=== PATIENT | female | born 1995 | race Caucasian/White ===

== ENCOUNTER 2021-01-02 14:08 | Emergency (ER) | payer SELFPAY ==
--- OUTSIDE RECORDS SUMMARY | 2021-01-02 14:11 | XMS REPORT | Continuity of Care Document ---
:1995 Author Organization [facility] t Address [address] [place] [address] Care Team Providers Name Role Phone Unavailable Unavailable Unavailable Problems This patient has no known problems. Allergies, Adverse Reactions, Alerts This patient has no known allergies or adverse reactions. Medications This patient has no known medications. Procedures This patient has no known procedures. Encounters Start End Encounter Admission Attending Care Care Encounter Source Date/Time Date/Time Type Type Clinicians Facility Department ID 2020-12-08 2020-12-08 Outpatient [facility] [id number] [facility] [place] 00:00:00 00:00:00 Violet Gomez ent Clinics Results This patient has no known results.
[2021-01-02] MEDS ORDERED: TETANUS & DIPHTHERIA TOX,ADULT 0.5 ML VIAL ONE (14:56)
--- NOTE | 2021-01-02 15:17 | RAD REPORT ---
EXAM DESCRIPTION: RAD - Foot Right 3 View - 01/02/2021 3:03 pm CLINICAL HISTORY: Right foot pain status post injury FINDINGS: A bandage overlies the foot obscuring detail somewhat. No fracture or dislocation is seen
--- NOTE | 2021-01-02 16:07 | ER ---
Nurse's Notes [facility] Name: Elizabeth Rodriguez Age: 25 yrs Sex: Female : 1995 Arrival Date: 01/02/2021 Time: 14:12 Bed 14 Private MD: Diagnosis: Laceration without foreign body, right foot;Contusion of left foot Presentation: 01/02 14:14 Chief complaint: EMS states: Moving out of her apartment, got frustrated kicked ca1 instapot with R foot. HX of anxiety, hasn't taken meds today. Lac/avulsed wound on R foot. Bleeding controlled. Coronavirus screen: Client denies travel out of the [place] in the last 14 days. At this time, the client does not indicate any symptoms associated with coronavirus-19. Ebola Screen: Patient negative for fever greater than or equal to 101.5 degrees Fahrenheit, and additional compatible Ebola Virus Disease symptoms Patient denies exposure to infectious person. Patient denies travel to an Ebola-affected area in the 21 days before illness onset. No symptoms or risks identified at this time. Initial Sepsis Screen: Does the patient meet any 2 criteria? No. Patient's initial sepsis screen is negative. Does the patient have a suspected source of infection? No. Patient's initial sepsis screen is negative. Risk Assessment: Do you want to hurt yourself or someone else? Patient reports no desire to harm self or others. Onset of symptoms was January 02, 2021. 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 Last tetanus immunization: < 10 years ago Flu vaccine is not up to date. - Social history:: Smoking status: Patient reports the use of cigarette tobacco products, smokes one pack cigarettes per day. Screenin:30 Abuse screen: Denies threats or abuse. Denies injuries from another. Nutritional ca1 screening: No deficits noted. Tuberculosis screening: No symptoms or risk factors identified. Fall Risk None identified. Assessment: 14:30 General: Appears in no apparent distress. comfortable, Behavior is calm, cooperative, ca1 appropriate for age. Pain: Complains of pain in right foot Pain currently is 4 out of 10 on a pain scale. Neuro: Level of Consciousness is awake, alert, obeys commands, Oriented to person, place, time, situation. Derm: Skin is healthy with good turgor, Skin is pink, warm \T\ dry. Musculoskeletal: Circulation, motion, and sensation intact. Capillary refill < 3 seconds. Injury Description: Laceration sustained to ball of right foot is jagged, superficial, 2.6 to 7.5 cm long, was sustained 30-60 minutes ago. a small amount of bleeding noted at this time. 16:29 Reassessment: Patient appears in no apparent distress at this time. Patient is alert, ca1 oriented x 3, equal unlabored respirations, skin warm/dry/pink. Vital Signs: 14:14 BP 127 / 65; Pulse 82; Resp 17 S; Temp 98.1(O); Pulse Ox 100% on R/A; Weight 54.43 kg ca1 (R); Height 5 ft. 1 in. (154.94 cm) (R); Pain 4/10; 16:30 BP 111 / 73; Pulse 76; Resp 15 S; Pulse Ox 100% on R/A; ca1 14:14 Body Mass Index 22.67 (54.43 kg, 154.94 cm) ca1 ED Course: 14:12 Patient arrived in ED. iw 14:14 Keely Carranza, PB is Primary Nurse. ca1 14:17 Triage completed. ca1 14:18 Arm band placed on right wrist. ca1 14:24 Doug Orellana NP is PHCP. pm1 14:24 Damien Chi MD is Attending Physician. pm1 14:30 Patient has correct armband on for positive identification. Placed in gown. Bed in low ca1 position. Call light in reach. Side rails up X2. Pulse ox on. NIBP on. Warm blanket given. 15:02 Foot Right 3 View XRAY In Process Unspecified. EDMS 16:00 Assist provider with laceration repair on right foot that was between 2.6 to 7.5 cm ca1 using Dermabond. Set up tray. Performed by Doug Orellana ASSISTANT COMMUNITY MANAGER Dressed with 4X4s, Patient tolerated well. Ortho shoe applied to right foot. 16:00 Patient did not have IV access during this emergency room visit. 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 Exp: ca1 11/28/2022. Lot #: [id number]. } Route: IM; Site: right deltoid; 16:29 Follow up: Response: No adverse reaction ca1 Outcome: 16:06 Discharge ordered by MD. pm1 16:31 Discharged to home ambulatory. ca1 16:31 Condition: stable 16:31 Discharge instructions given to patient, Instructed on discharge instructions, follow up and referral plans. medication usage, wound care, Demonstrated understanding of instructions, follow-up care, medications, wound care, Prescriptions given X 1. 16:31 Patient left the ED. ca1 Signatures: Dispatcher [employer] EDJacy Funes RN RN iw Marinas, Patrick, NP ASSISTANT COMMUNITY MANAGER pm1 Keely Carranza RN RN ca1
--- NOTE | 2021-01-02 16:07 | EDPHYS ---
Physician Documentation [facility] Name: Elizabeth Rodriguez Age: 25 yrs Sex: Female : 1995 Arrival Date: 01/02/2021 Time: 14:12 Bed 14 Private MD: ED Physician Damien Chi HPI: 01/02 15:22 This 25 yrs old Female presents to ER via EMS with complaints of laceration pm1 to right foot. 15:22 The patient presents with a laceration. The complaints affect the right foot. Context: pm1 The problem was sustained at home, resulted from the patient kicking, cooking equipment, the patient can fully bear weight, the patient is able to ambulate. Onset: The symptoms/episode began/occurred just prior to arrival. Modifying factors: The symptoms are alleviated by pressure to area. Severity of symptoms: in the emergency department the symptoms have improved. The patient has not experienced similar symptoms in the past. The patient has not recently seen a physician. 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 Last tetanus immunization: < 10 years ago Flu vaccine is not up to date. - Social history:: Smoking status: Patient reports the use of cigarette tobacco products, smokes one pack cigarettes per day. ROS: 15:22 MS/extremity: Positive for laceration of the medial aspect of right foot, Negative for pm1 decreased range of motion, deformity. 15:22 Constitutional: Negative for fever, chills, and weight loss, Cardiovascular: Negative for chest pain, palpitations, and edema, Respiratory: Negative for shortness of breath, cough, wheezing, and pleuritic chest pain, Abdomen/GI: Negative for abdominal pain, nausea, vomiting, diarrhea, and constipation. 15:22 Skin: Positive for abrasion(s), laceration(s), of the medial aspect of right foot. 15:22 All other systems are negative. Exam: 15:22 Constitutional: This is a well developed, well nourished patient who is awake, alert, pm1 and in no acute distress. Head/Face: Normocephalic, atraumatic. 15:22 Cardiovascular: Exam negative for acute changes, Rate: normal, Rhythm: regular, Pulses: no pulse deficits are appreciated. 15:22 Respiratory: Exam negative for acute changes, respiratory distress, shortness of breath, Breath sounds: are clear throughout. 15:22 Skin: Appearance: normal except for affected area, injury, abrasion(s), small abrasion noted, of the right foot, laceration(s), that can be described as clean, no foreign body, irregular, skin tear to distal medial aspect of right foot. 15:22 Neuro: Exam negative for acute changes, Orientation: is normal, Mentation: is normal, Motor: is normal, moves all fours. Vital Signs: 14:14 BP 127 / 65; Pulse 82; Resp 17 S; Temp 98.1(O); Pulse Ox 100% on R/A; Weight 54.43 kg ca1 (R); Height 5 ft. 1 in. (154.94 cm) (R); Pain 4/10; 16:30 BP 111 / 73; Pulse 76; Resp 15 S; Pulse Ox 100% on R/A; ca1 14:14 Body Mass Index 22.67 (54.43 kg, 154.94 cm) ca1 Laceration: 16:03 Wound Repair of 2.5cm ( 1.0in ) Skin tear laceration to medial aspect of right foot. pm1 Irregularly shaped.. Distal neuro/vascular/tendon intact. Wound prep: Extensive cleansing with betadine with hibiclenz by me, Wound irrigation with saline by me, Wound explored extensively, Copious irrigation. Skin closed with 1-0 Adhesive skin closure using Dermabond. Patient tolerated well. MDM: 14:24 Patient medically screened. pm1 16:05 Data reviewed: vital signs. Data interpreted: Pulse oximetry: on room air is 100 %. pm1 Interpretation: normal. Counseling: I had a detailed discussion with the patient and/or guardian regarding: the historical points, exam findings, and any diagnostic results supporting the discharge/admit diagnosis, radiology results, the need for outpatient follow up, to return to the emergency department if symptoms worsen or persist or if there are any questions or concerns that arise at home. 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 Exp: ca1 11/28/2022. Lot #: [id number]. } Route: IM; Site: right deltoid; 16:29 Follow up: Response: No adverse reaction ca1 Disposition: 01/02/21 16:06 Discharged to Home. Impression: Laceration without foreign body, right foot, Contusion of left foot. - Condition is Stable. - Discharge Instructions: Foot Contusion, Tissue Adhesive Wound Care. - Prescriptions for Keflex 500 mg Oral Capsule - take 1 capsule by ORAL route every 12 hours for 10 days; 20 capsule. - Medication Reconciliation Form, Thank You Letter, Antibiotic Education, Prescription Opioid Use form. - Follow up: Emergency Department; When: As needed; Reason: Worsening of condition. Follow up: Private Physician; When: 2 - 3 days; Reason: Recheck today's complaints, Continuance of care, Re-evaluation by your physician. - Problem is new. - Symptoms have improved. Signatures: Dispatcher [employer] EDMS Doug Orellana NP JUVENILE JUSTICE OFFICER pm1 Keely Carranza RN RN ca1 Corrections: (The following items were deleted from the chart) 16:07 16:06 01/02/2021 16:06 Discharged to Home. Impression: Laceration without foreign body, pm1 right foot. Condition is Stable. Forms are Medication Reconciliation Form, Thank You Letter, Antibiotic Education, Prescription Opioid Use. Follow up: Emergency Department; When: As needed; Reason: Worsening of condition. Follow up: Private Physician; When: 2 - 3 days; Reason: Recheck today's complaints, Continuance of care, Re-evaluation by your physician. Problem is new. Symptoms have improved. pm1 16:31 16:07 01/02/2021 16:06 Discharged to Home. Impression: Laceration without foreign body, ca1 right foot; Contusion of left foot. Condition is Stable. Forms are Medication Reconciliation Form, Thank You Letter, Antibiotic Education, Prescription Opioid Use. Follow up: Emergency Department; When: As needed; Reason: Worsening of condition. Follow up: Private Physician; When: 2 - 3 days; Reason: Recheck today's complaints, Continuance of care, Re-evaluation by your physician. Problem is new. Symptoms have improved. pm1
[2021-01-02] MEDS ORDERED: DERMABOND SKIN ADHESIVE TOP ONE (16:08)
[2021-01-02 16:40] VITALS: TEMP 98.1; O2SAT 100
[2021-01-02 16:42] VITALS: BP 111/73
== END 2021-01-02 16:31 | disposition home or self-care (01) ==
LOC: ER 14:08
PROC: 0HQMXZZ Repair Right Foot Skin, External Approach (ICD-10-PCS; principal; 2021-01-02)
DX: S91.311A Laceration without foreign body, right foot, initial encounter (principal); S90.32XA Contusion of left foot, initial encounter; Z23 Encounter for immunization; F17.210 Nicotine dependence, cigarettes, uncomplicated; W22.09XA Striking against other stationary object, initial encounter; Y92.009 Unspecified place in unspecified non-institutional (private) residence as the place of occurrence of the external cause; F41.9 Anxiety disorder, unspecified
CPT/HCPCS: 90471; 90714; 99284

== ENCOUNTER 2022-05-01 16:25 | Emergency (ER) | payer OTHER ==
--- OUTSIDE RECORDS SUMMARY | 2022-05-01 16:29 | XMS REPORT | Continuity of Care Document ---
:1995 Author Organization [facility] t Address [address] [place] [address] Care Team Providers Name Role Phone Pcp, Patient Does Not Have A Primary Care Physician +[id number] Tee Rg Attending Clinician Unavailable MARILU ANTONIO Attending Clinician Unavailable Marilu Posadas Attending Clinician Keaton AMBRIZ, Penny Sierra Attending Clinician CLIF CARUSO Attending Clinician Unavailable Joseph Hood MD Attending Clinician Sharon Leon MD Attending Clinician Clif Caruso MD Attending Clinician HUEY COX Attending Clinician Unavailable Huey Ledezma Attending Clinician CLIF CARUSO Admitting Clinician Unavailable Clif Caruso MD Admitting Clinician HUEY COX Admitting Clinician Unavailable Payers Payer Name Policy Type Policy Number Effective Date Expiration Date S ource MEDICAID OF [place] [id number] 2020 00:00:00 Problems Condition Condition Condition Status Onset Resolution Last Treating Co mments Source Name Details Category Date Date Treatment Clinician Date Rhabdomyol Rhabdomyol Disease Active U nivers ysis ysis 03-14 ity of 00:00: [address] Severe Severe Disease Active Univers dehydratio dehydratio 03-13 it y of n n 00:00: [address] No known No known Disease Unive rs active active ity of problems problems [facility] [id number] Anxiety Problem Commo n disorder, Spirit unspecifie - [facility] d [facility] [id number] Major Problem Common depressive Spirit disorder, [facility] d [place] [id number] Developmen Problem Comm on vidhi Spirit disorder - [facility] of [facility] skills, Medical unspecifie Center d Allergies, Adverse Reactions, Alerts Allergy Allergy Status Severity Reaction(s) Onset Inactive Treating Comm ents Source Name Type Date Date Clinician NO KNOWN Drug Active Univers ALLERGIE Class ity of [facility] Social History Social Habit Start Date Stop Date Quantity Comments Source History of Common Spirit - Tobacco Use [facility] Sex Assigned At Common Sp leonela - [facility] Exposure to 2022-04-20 2022-04-30 Unable to assess Univers ity of SARS-CoV-2 00:00:00 12:23:00 [facility] [place] Tobacco use and 2022-03-13 2022-03-13 Smokeless tobacco Un iversity of exposure 00:00:00 00:00:00 non-user [facility] Education 2022-03-13 2022-03-13 14 [facility] 00:00:00 00:00:00 [facility] Smoking Status Start Date Stop Date Source Unknown if ever smoked Universit y [facility] Occasional tobacco smoker 2022-03-13 00:00:00 Un iversity [facility] Never Smoker [facility] Medications Ordered Filled Start Stop Current Ordering Indication Dosage Frequency Signature Comments Components Source Medication Medication Date Date Medication? Clinician (SIG) Name Name NaCl 0.9% 2021-07 500mL at 999 Univ ers (NS) bolus 0-23 10-23 mL/hr, 500 it y of infusion 18:45: 19:21 mL, IV [place] 500 mL 00 :00 Infusion, Medical ONCE, 1 Branch dose, On 04/30/22 at 1345, DANIEL NaCl 0.9% 2021-07 1000mL at 999 Uni vers (NS) bolus 0-23 mL/hr, ity of infusion 17:45: 19:15 1,000 mL, [place] 1,000 mL 00 :00 IV Medical Infusion, Branch ONCE, 1 dose, On 04/30/22 at 1245, DANIEL LORazepam 2021-07- No 1mg 1 mg, Slow U nivers (ATIVAN) 004-30 IV Push, ity of injection 1 17:00: 17:32 [place]CE, 1 [place] mg 00 :00 dose, On Medical Sun Branch 04/30/22 at 1200, STAT hydrOXYzine 2021-07 Yes [id number] 50mg Take 1 Univers 50 mg [id number] tablet by ity of tablet 00:00: mouth 3 [place] 00 (three) Medical times Branch daily as needed for Anxiety. PARoxetine 2021- Yes [id number] 20mg Take 1 Univers (PAXIL) 20 03-16 tablet by ity of mg tablet 00:00: 04:59 mouth in [place] 00 :00 the Medical morning Branch for 30 days. PARoxetine 2021- Yes [id number] 20mg Take 1 Univers (PAXIL) 20 03-16 tablet by ity of mg tablet 00:00: 04:59 mouth in [place] 00 :00 the Medical morning Branch for 30 days. PARoxetine 2021- No 20mg Take 20 mg Univers (PAXIL) 20 03-15 by mouth ity of mg tablet 15:14: 00:00 in the [place] 50 :00 morning. Medical Branch sulfamethox 2021- Yes [id number] 1{tbl} Take 1 Univers azole-trime 03-15 tablet by it y of thoprim 00:00: 04:59 mouth in [place] (BACTRIM 00 :00 the Medical DS) 800-160 morning Branc h mg per and 1 tablet tablet in the evening. Do all this for 7 days. sulfamethox 2021- Yes [id number] 1{tbl} Take 1 Univers azole-trime 03-15 tablet by it y of oprim 00:00: 04:59 mouth in [place] (BACTRIM 00 :00 the Medical DS) 800-160 morning Branc h mg per and 1 tablet tablet in the evening. Do all this for 7 days. Vancomycin 2021- Yes 15mg/kg 750 mg U nivers 750 mg in 03-14 (rounded ity o f NaCl 0.9% 23:00: 22:59 from 892.5 [place] (NS) 250 mL 00 :00 mg = 15 Medic al VIAL-MATE mg/kg Branch ?59.5 kg), IV Piggyback, Q8H ABX, 9 doses, First dose on Sun03/14/22 at 1800, Last dose on Sun03/17/22 at 1000, Administer over 60 Minutes, 250 mL
Reas on for Anti-Infec tive: Documented Infection< br>Documen scooter Infection Site: Urine
D uration of Therapy: 7 days NaCl 0.45% Yes 1000mL at 125 Uni vers (1/2NS) IV 03-14 mL/hr, ity of infusion 19:00: 1,000 mL, [place] 1,000 mL 00 IV Medical Infusion, Branch CONTINUOUS , Starting on Sun03/14/22 at 1400, Until Discontinu ed, Routine maalox:diph Yes 15mL 15 mL, Univ ers enhydrAMINE 03-14 Oral ity of :lidocaine 15:15: ([place] 2 % viscous 00 Spit Out), Me dical 1:1:1 Q6HPRN, Branch (FIRST-MOUT Starting HWASH BLM) on Sun oral 03/14/22 at suspension 1015, 15 mL Until Discontinu ed, Routine, Oral mucositis cefTRIAXone No 1000mg 1,000 mg, Univers (ROCEPHIN) 03-14 IV ity of 1,000 mg in 04:00: 21:47 Piggyback, [place] NaCl 0.9% 00 :57 Q24H ABX, Medic al (NS) 50 mL 6 doses, Branc h MINI-BAG First dose on Sun03/13/22 at 2300, Last dose on 03/18/22 at 2300, Administer over 30 Minutes, 50 mL
Reas on for Anti-Infec tive: Documented Infection& lt;br>Docu mented Infection Site: Urine
D uration of Therapy: 7 days enoxaparin Yes 40mg 40 mg, Unive rs (LOVENOX) 03-13 Subcutaneo ity of injection 22:00: [place], [place]ILY, [place] 40 mg 00 First dose Medical on [facility] 03/13/22 at 1700, Until Discontinu ed, Routine maalox:diph 2021- No 15mL 15 mL, Uni vers enhydrAMINE 03-13 Oral ity of :lidocaine 17:05: 15:11 ([place] 2 % viscous 07 :52 Spit Out), Me dical 1:1:1 QDAILYPRN, Branch (FIRST-MOUT Starting HWASH BLM) on Sun oral 03/13/22 at suspension 1205, 15 mL Until 03/14/22 at 1011, Routine, Oral mucositis clonazePAM Yes .5mg 0.5 mg, Univ ers (KLONOPIN) 03-13 Oral, BID, ity of tablet 0.5 16:45: First dose [place] mg 00 on [facility] Medical 03/13/22 at Branch 1145, Until Discontinu ed, Routine PARoxetine Yes 20mg 20 mg, Unive rs (PAXIL) 03-13 Oral, ity of tablet 20 14:00: DAILY, [place] mg 00 First dose Medical on [facility] 03/13/22 at 0900, Until Discontinu ed, Routine LORazepam 2021- No 2mg 2 mg, Slow U nivers (ATIVAN) 03-13 IV Push, ity of injection 2 09:30: 08:47 ONCE, 1 [place] mg 00 :00 dose, On Medical [facility] 03/13/22 Branch at 0430, Routine
Is the medication being used for status epilepticu s? No NaCl 0.45% 2021- No 1000mL at 100 Un bola (1/2NS) IV 03-13 mL/hr, ity of infusion 08:45: 18:48 1,000 mL, [place] 1,000 mL 00 :29 IV Medical Infusion, Branch CONTINUOUS , Starting on Sun03/13/22 at 0345, Until Tu03/14/22 at 1348, Routine LORazepam Yes 2mg 2 mg, Slow Un bola (ATIVAN) 03-13 IV Push, ity of injection 2 08:41: Q4HPRN, [place] mg 50 Starting Medical on Sun [place] 03/13/22 at 0341, Until Discontinu ed, Routine, Agitation& lt;br>Is the medication being used for status epilepticu s? No ondansetron Yes 4mg 4 mg, Slow Univers (ZOFRAN 03-13 IV Push, ity of (PF)) 06:33: Q6HPRN, [place] injection 4 50 Starting Medi princess mg on Sun [place] 03/13/22 at 0133, Until Discontinu ed, Routine, Nausea and Vomiting (N/V) acetaminoph Yes 650mg 650 mg, Un bola en 03-13 Oral, ity of (TYLENOL) 06:33: Q6HPRN, [place] tablet 650 43 Starting Medic al mg on Sun [place] 03/13/22 at 0133, Until Discontinu ed, Routine, Pain (scale 1-3) diphenhydrA 2021- No 25mg 25 mg, Uni vers MINE 03-13 Slow IV ity of (BENADRYL) 04:45: 05:11 Push, [place] injection 00 :00 ONCE, 1 Medical 25 mg dose, On [facility] 03/12/22 at 2345, STAT cefTRIAXone 2021-0 2021- No 2g 2 g, IV Un bola (ROCEPHIN) 03-13 Piggyback, it y of 2 g in NaCl 04:30: 04:07 ONCE NOW, [place] 0.9% (NS) 00 :00 1 dose, On Medi princess 100 mL [place] 03/12/22 [place] MINI-BAG at 2330, Administer over 30 Minutes, 100 mL
R tiffanie for Anti-Infec tive: Documented Infection< br>Documen scooter Infection Site: Urine<br&g t;Duration of Therapy: Other (see Comments) D5W IV 2021-0 2022- No 1000mL at 150 Univer s infusion 03-13 mL/hr, IV ity o f 1,000 mL 03:45: 07:41 Infusion, [place] 00 :07 CONTINUOUS Medical , Starting Branch on Sun03/12/22 at 2245, Until Sun03/13/22 at 0241, DANIEL ketamine 2021- No 100mg 100 mg, Univ ers (KETALAR) 03-13 Slow IV ity of injection 03:30: 02:20 Push, [place] 100 mg 00 :00 ONCE, 1 Medical dose, On Branch [place] 03/12/22 at 2230, Routine midazolam 2021- No 2mg 2 mg, IV Uni vers (VERSED) 03-13 Push, ity of injection 2 03:15: 03:15 ONCE, 1 [place] mg 00 :00 dose, On Medical [place] 03/12/22 Branch at 2215, STAT iopamidol 2021- No [id number] 75mL 75 mL, Univers (ISOVUE 03-13 Intravenou ity o f 370-500 mL) 02:25: 02:26 s, ONCE, 1 [place] injection 00 :00 dose, On Medica l 75 mL [place] 03/12/22 Branch at 2145, Routine midazolam 2021-2021- No 2mg 2 mg, IV Uni vers (VERSED) 03-13 Push, ity of injection 2 02:00: 01:59 ONCE, 1 [place] mg 00 :00 dose, On Medical [place] 03/12/22 Branch at 2100, STAT methylPREDN methylPREDN 2021- No QD methylPRED ISolone 4 ISolone 4 02-23 NISolone 4 MG MG 00:00: 00:00 MG 00 :00 methylPREDN methylPREDN 2021- No QD methylPRED ISolone 4 ISolone 4 02-23 NISolone 4 MG MG 00:00: 00:00 MG 00 :00 ketorolac 2021-2021- No 30mg 30 mg, Unive rs (TORADOL) 12-06 Slow IV ity of injection 02:00: 00:56 Push, [place] 30 mg 00 :00 ONCE, 1 Medical dose, On Branch [facility] 12/05/21 at 2100, D[facility]EL
[facility] : HUEY COX NaCl 0.9% 2021- No 1000mL at 999 Uni vers (NS) bolus 12-06 mL/hr, ity of infusion 02:00: 02:58 1,000 mL, [place] 1,000 mL 00 :00 IV Medical Infusion, Branch ONCE, 1 dose, On [facility] 12/05/21 at 2100, STAT morpHINE (4 No 4mg 4 mg, Slow Univers mg/mL) 12-06 IV Push, ity of injection 4 02:00: 00:56 ONCE, 1 [place] mg 00 :00 dose, On Medical [facility] 12/05/21 at 2100, STAT ondansetron 2021- No 4mg 4 mg, Slow Univers (ZOFRAN 12-06 IV Push, ity of (PF)) 02:00: 01:01 ONCE, 1 [place] injection 4 00 :00 dose, On Medi princess mg [facility] 12/05/21 at 2100, DANIEL FENTanyl PF No 50ug 50 mcg, Un bola (SUBLIMAZE 12-0530 Slow IV ity o f (PF)) 23:30: 22:42 Push, [place] injection 00 :00 ONCE, 1 Medical 50 mcg dose, On Branch [facility] 12/05/21 at 1830, STAT iopamidol 2021- No [id number] 100mL 100 mL, Univers (ISOVUE 12-0530 Intravenou ity o f 370-500 mL) 23:00: 23:00 s, ONCE, 1 [place] injection 00 :00 dose, On Medica l 100 mL [facility] 12/05/21 at 1815, Routine ciprofloxac Yes [id number] 250mg Take 1 Univers in HCl 250 5-30 tablet by ity of mg tablet 00:00: mouth 2 [place] 00 (two) Medical times Branch daily. PARoxetine PARoxetine No 1{table QD PARoxetine HCl 20 MG HCl 20 MG t_in_th HCl 20 MG e_morni ng} PARoxetine PARoxetine No 1{table QD PARoxetine HCl 20 MG HCl 20 MG t_in_th HCl 20 MG e_morni ng} PARoxetine PARoxetine No 1{table QD PARoxetine HCl 20 MG HCl 20 MG t_in_th HCl 20 MG e_morni ng} PARoxetine PARoxetine No 1{table QD PARoxetine HCl 20 MG HCl 20 MG t_in_th HCl 20 MG e_morni ng} PARoxetine PARoxetine No 1{table QD PARoxetine HCl 20 MG HCl 20 MG t_in_th HCl 20 MG e_morni ng} PARoxetine PARoxetine No 1{table QD PARoxetine HCl 20 MG HCl 20 MG t_in_th HCl 20 MG e_morni ng} PARoxetine PARoxetine No 1{table QD PARoxetine HCl 20 MG HCl 20 MG t_in_th HCl 20 MG e_morni ng} PARoxetine PARoxetine No 1{table QD PARoxetine HCl 20 MG HCl 20 MG t_in_th HCl 20 MG e_morni ng} PARoxetine PARoxetine No 1{table QD PARoxetine HCl 20 MG HCl 20 MG t_in_th HCl 20 MG e_morni ng} Vital Signs Vital Name Observation Time Observation Value Comments Source Systolic blood 2022-04-30 19:56:00 123 mm[Hg] Univer sity [facility] Diastolic blood 2022-04-30 19:56:00 98 mm[Hg] Unive [facility] Heart rate 2022-04-30 19:56:00 95 /min [facility] Respiratory rate 2022-04-30 19:56:00 16 /min [facility] Oxygen saturation in 2022-04-30 19:56:00 100 /min [facility] Arterial blood by [facility] Pulse oximetry Branch Body temperature 2022-04-30 16:46:00 36.61 [place] [facility] Body weight 2022-04-30 16:46:00 49.896 kg [facility] BMI 2022-04-30 16:46:00 18.88 kg/m2 [facility] Systolic blood 2022-03-15 16:37:00 101 mm[Hg] Univer sity [facility] Diastolic blood 2022-03-15 16:37:00 56 mm[facility]Hg[facility] 2022-03-15 16:37:00 63 /min Universi ty [facility] Body temperature 2022-03-15 16:37:00 35.67 [place] Univ ersity [facility] Respiratory rate 2022-03-15 16:37:00 18 /[facility] Oxygen saturation in 2022-03-15 16:37:00 100 /min [facility] Arterial blood by [facility] Pulse oximetry Branch Body weight 2022-03-15 09:40:00 63.458 kg Universi ty [facility] BMI 2022-03-15 09:40:00 24.01 kg/m2 Universi ty [facility] Body height 2022-03-13 01:41:00 162.6 cm Universi ty [facility] height 2022-03-08 16:00:00 61 [in_i] [facility] weight 2022-03-08 16:00:00 124.4 [lb_av] [facility] temperature 2022-03-08 16:00:00 98.3 [degF] [facility] bmi 2022-03-08 16:00:00 23.5 kg/m2 [facility] oximetry 2022-03-08 16:00:00 99 % [facility] respiratory rate 2022-03-08 16:00:00 16 /min Comm on [facility] blood pressure 2022-03-08 16:00:00 109 mm[Hg] Common [facility] - systolic [facility] blood pressure 2022-03-08 16:00:00 58 mm[Hg] Common [facility] - diastolic [facility] height 2022-02-23 09:10:00 61 [in_i] [facility] weight 2022-02-23 09:10:00 132 [lb_av] [facility] bmi 2022-02-23 09:10:00 24.94 kg/m2 [facility] height 2022-01-18 09:40:00 61 [in_i] [facility] weight 2022-01-18 09:40:00 131.7 [lb_av] Common Spirit - [facility] temperature 2022-01-18 09:40:00 98.5 [degF] Common S [facility] bmi 2022-01-18 09:40:00 24.88 kg/m2 Common S [facility] oximetry 2022-01-18 09:40:00 100 % Common S [facility] respiratory rate 2022-01-18 09:40:00 16 /min Comm on Spirit - [facility] blood pressure 2022-01-18 09:40:00 107 mm[Hg] Common [facility] - systolic [facility] blood pressure 2022-01-18 09:40:00 58 mm[Hg] Common [facility] - diastolic [facility] Systolic blood 2021-12-06 02:00:00 113 mm[Hg] Univer sity of [facility] Diastolic blood 2021-12-06 02:00:00 69 mm[Hg] Unive rsity [facility] Heart rate 2021-12-06 02:00:00 66 /min [facility] Respiratory rate 2021-12-06 02:00:00 16 /min [facility] Oxygen saturation in 2021-12-06 02:00:00 99 /min [facility] Arterial blood by [facility] Pulse oximetry Branch Body temperature 2021-12-05 21:48:00 37.44 [place] [facility] Body height 2021-12-05 21:48:00 154.9 cm [facility] Body weight 2021-12-05 21:48:00 60.328 kg [facility] BMI 2021-12-05 21:48:00 25.13 kg/m2 [facility] height 2021-07-22 16:20:00 61 [in_i] Common S [facility] weight 2021-07-22 16:20:00 139 [lb_av] Common S [facility] bmi 2021-07-22 16:20:00 26.26 kg/m2 Common S pirit - [facility] Procedures Procedure Date / Time Performing Clinician Source Performed LACTIC ACID WHOLE BLOOD 2022-04-30 19:54:00 Marilu Antonio [facility] POCT TEST 2022-04-30 17:20:00 Marilu Antonio [facility] LACTIC ACID WHOLE BLOOD 2022-04-30 17:15:00 Marilu Antonio [facility] URINALYSIS 2022-04-30 17:14:00 Marilu Antonio [facility] URINE DRUG (IMMUNOASSAY) 2022-04-30 17:14:00 Marilu Antonio [facility] SCREEN W/O REFLEX CREATINE KINASE 2022-04-30 17:08:00 [facility]OLIC PANEL 2022-04-30 17:08:00 Marilu Antonio [facility] ([id number]) [facility] CBC WITH DIFF 2022-04-30 17:08:00 [facility] CREAT[facility] 2022-03-15 10:04:00 Sheldon [facility] BASIC METABOLIC PANEL 2022-03-15 10:04:00 katharine [facility] (NA, K, CL, CO2, GLUCOSE, Medica l Branch BUN, CREATININE, CA) CBC WITH DIFF 2022-03-15 10:04:00 Sheldon [facility] CREATINE KINASE 2022-03-14 16:50:00 Sheldon [facility] BASIC METABOLIC PANEL 2022-03-14 16:50:00 katharine [facility] (NA, K, CL, CO2, GLUCOSE, Medica l Branch BUN, CREATININE, CA) CBC WITH DIFF 2022-03-14 16:50:00 [facility] 2022-03-13 18:28:00 [facility] BASIC METABOLIC PANEL 2022-03-13 18:28:00 [facility] (NA, K, CL, CO2, GLUCOSE, Medica l Branch BUN, CREATININE, CA) POCT TEST 2022-03-13 03:48:00 Joseph Hood [facility] URINE DRUG (IMMUNOASSAY) 2022-03-13 03:04:00 [facility] Medical [facility] SCREEN URINALYSIS 2022-03-13 03:04:00 Joseph Hood [facility] BLOOD CULTURE SCREEN 2022-03-13 02:58:00 Joseph Hood [facility] URINE CULTURE 2022-03-13 02:58:00 Joseph Hood [facility] ABORH CONFIRMATION (LAB 2022-03-13 02:55:00 Joseph Hood [facility]) Medical Branch HB ECG ROUTINE & RHYTHM 2022-03-13 02:43:56 Joseph Hood [facility] STRIP [facility] CT TRAUMA THORAX W 2022-03-13 02:35:42 Joseph Hood [facility] CONTRAST Medical Branch CT TRAUMA ABDOMEN PELVIS 2022-03-13 02:35:42 [facility] Medical [place] CT TRAUMA HEAD WO 2022-03-13 02:35:16 Joseph Hood [facility] CONTRAST Medical [place] CT TRAUMA CERVICAL SPINE 2022-03-13 02:35:16 [facility] CT TRAUMA THORACIC SPINE 2022-03-13 02:35:16 [facility] Branch CT TRAUMA LUMBAR SPINE WO 2022-03-13 02:35:16 [facility] Medical [place] MODERATE SEDATION 2022-03-13 02:20:00 Joseph Hood [facility] Medical [place] HB ABO GROUPING 2022-03-13 02:15:00 Joseph Hood [facility] COVID-19 (ID NOW RAPID 2022-03-13 01:55:00 Joseph Hood [facility] TESTING) Medical [place] LAB ONLY COVID 2022-03-13 01:55:00 Joseph Hood [facility] INTERPRETATION [facility] Branch COMP. METABOLIC PANEL 2022-03-13 01:53:00 Joseph Hood [facility] ([id number]) Medical [place] SALICYLATE 2022-03-13 01:53:00 Joseph Hood [facility] ETHANOL 2022-03-13 01:53:00 Joseph Hood [facility] CBC WITH DIFF 2022-03-13 01:53:00 Joseph Hood [facility] CT ABDOMEN PELVIS W 2021-12-05 23:09:00 Huey [facility] Branch POCT TEST 2021-12-05 22:54:00 Huey Cox [facility] URINALYSIS 2021-12-05 22:53:00 Heuy Cox [facility] COMP. METABOLIC PANEL 2021-12-05 22:42:00 Huey Cox [facility] ([id number]) [facility] CBC WITH DIFF 2021-12-05 22:41:00 Huey Cox [facility] Encounters Start End Encounter Admission Attending Care Care Encounter Source Date/Time Date/Time Type Type Clinicians Facility Department ID 2022-01-19 Outpatient Rg, [facility] [id number] Common 09:46:01 Avnee [facility] 2022-01-11 [facility] [id number] Common 08:36:02 Avnee [facility] 2021-12-14 [facility], [facility] [id number] Common 14:35:01 Avnee [facility] 2021-08-03 Outpatient Rg, [facility] [id number] Common 14:35:58 Avnee [facility] 2021-08-03 Outpatient Rg, STLC [facility] [id number] Common 14:33:46 Avnee [facility] 2021-08-03 Outpatient Rg, STLC [facility] [id number] Common 13:45:08 Avnee [id number] [facility] 2021-08-03 Outpatient Rg, [facility] [id number] Common 13:10:13 Avnee [id number] [facility] 2021-08-03 Outpatient Rg, [facility] [id number] Common 13:10:00 Avnee [id number] [facility] 2022-04-30 2022-04-30 Emergency X ANTONIO, [facility] ERT [id number] Univers 11:41:00 15:44:00 [facility] 2022-04-30 2022-04-30 [facility] [id number] Univers 11:41:00 15:44:00 Marilu CHERY [id number] i ty of [place] [id number] [facility] [id number] [facility] 084 Branch 2022-03-16 2022-03-16 Transition KATE Pugh [id number] Univers 00:00:00 00:00:00 of Care Penny MACY [id number] i ty of ASHLEY [id number] [facility] [place] [id number] [facility] 403 Branch 2022-03-12 2022-03-15 Inpatient X [facility] [id number] Univers 20:38:00 16:25:00 [facility] 2022-03-12 2022-03-15 [facility] Joseph Hood [facility] [id number] Univers 20:38:00 16:25:00 Encounter Sharon Leon [id number] ity of Clif Caruso [id number] [facility] [id number] [facility] 081 Branch 2022-03-08 2022-03-08 (TEL) STLMLC STLMLC [id number] Co mmon 00:00:00 00:00:00 [facility] 2022-03-08 2022-03-08 OFFICE STLMLC STLMLC [id number] Co mmon 00:00:00 00:00:00 VISIT EST Spir it PT LEVEL 3 [facility] 2022-02-23 2022-02-23 OFFICE STLMLC STLMLC [id number] Co mmon 00:00:00 00:00:00 VISIT EST Spir it PT LEVEL 3 [facility] 2022-02-23 2022-02-23 (TEL) STLMLC STLMLC [id number] Co mmon 00:00:00 00:00:00 [facility] 2022-01-18 2022-01-18 OFFICE STLMLC STLMLC [id number] Co mmon 00:00:00 00:00:00 VISIT EST Spir it PT LEVEL 3 [facility] 2021-12-05 2021-12-05 [facility] [id number] Univers 16:46:00 22:03:00 HUEY anderson [facility] 2021-12-05 2021-12-05 Emergency [facility] [id number] Univers 16:46:00 22:03:00 Huey Erickson VIDA [id number] i ty [facility] [id number] [facility] [facility] [phone] [place] [id number] [place] 2021-10-25 2021-10-25 (TEL) STLMLC STLMLC [id number] Co mmon 00:00:00 00:00:00 [facility] 2021-07-22 2021-07-22 OL DIG E/M STLMLC STLMLC [id number] Common 00:00:00 00:00:00 [facility] [place] Spir it MIN [facility] 2021-07-21 2021-07-21 (TEL) STLMLC STLMLC [id number] Co mmon 00:00:00 00:00:00 [facility] 2020-12-08 2020-12-08 Outpatient STLMLC STLMLC [id number] Common 00:00:00 00:00:00 [facility] Results Test Description Test Time Test Comments Results Result Comments Source POCT TEST 2022-04-30 17:20:00 Test Item Value Reference Range Interpretation Comme nts POCT PREG (test code = 1605) negative On board controls acceptable with C Line (test code = 3574) present POCT PREG LOT # (test code = 3575) [id number] POCT PREG TEST DATE (test code = 3576) 09/06/2023 Lab Interpretation (test code = 74804-7) Normal [facility]PO[facility] [id number] 03:48:00 Test Item Value Reference Range Interpretation Comments On board controls acceptable with present C Line (test code = 3574) POCT PREG LOT # (test code = 3575) [id number] POCT PREG TEST DATE (test 2023-06-07 code = 3576) POCT PREG (test code = 1605) negative Lab Interpretation (test code = Normal 36432-3) [facility] HospitalABORH Confirmation (Lab Only)2022-03-13 03:29:35 Test Item Value Reference Range Interpretation Comments ABO & RH (test code O Positive Performe d at [facility] = 20) Laboratory Serv [facility] [address] [place], [place] [id number] Free: [phone] A No. [id number] [facility] HospitalType and Screen - ONCE [id number] 03:07:39 Test Item Value Reference Range Interpretation Comments ABO & RH (test code O Positive Performe d at [facility] = 20) [facility] [address] [place], [place] [address]Toll Free: [phone] A No. [id number] IAT (test code = Negative Performed a t [facility] 1185) Laboratory [facility] [place], [place] [id number] Free: [phone] A No. [id number] [facility] HospitalSALICYLATE2022-09-05 02:29:30 SALICYLATE<10mg/L03/12/2022 9:29 PM [facility]: ? Analgesic and Antipyretic Use ? 20- 100 mg/L ? ? Anti-Inflammatory Use ? 100-250 mg/L Toxic Range: ? Greater than 300 mg/LUnB[facility] DallasETHANOL2022-09-05 02:29:25ALCOHOL<10mg/dL03/12/2022 9:29 PM [facility]<10 Uchwueho21-140 Toxic>100 Depression of INSOLE BUFFER>400 Fatalities ReportedUnBaylor Scott & White [facility] and Vascular Hospital – DallasACETAMINOPHEN 2022-03-13 02:29:09 Test Item Value Reference Range Interpretation Comments ACETAMINOP (test code = 10-30 L [id number]) CHRISTY (test code = CHRISTY) Toxic: Greater than 200 ug/mL @ 4 hour post ingestion or greater than 50 ug/mL @ 12 hour post ingestion Lab Interpretation (test Abnormal code = 29508-7) [facility] HospitalCOM. METABOLIC PANEL ([id number])2022-03-13 02:16:46 Test Item Value Reference Range Interpretation Comments NA (test code = 148 mmol/L 135-145 H 3041479728) K (test code = 3.8 mmol/L 3.5-5 3612581113) CL (test code = 112 mmol/L 98-108 H 0133218654) CO2 TOTAL (test code = 22 mmol/L 23-31 L 9343454834) AGAP (test code = 2-16 8710245938) BUN (test code = 21 mg/dL 7-23 7037726801) GLUCOSE (test code = 105 mg/dL 70-110 7635005254) CREATININE (test code = 1.38 mg/dL 0.5-1.04 H 5798363535) TOTAL BILI (test code = 0.9 mg/dL 0.1-1.7 5612384124) CALCIUM (test code = 9.3 mg/dL 8.6-10.6 0303723346) T PROTEIN (test code = 7.1 g/dL 6.3-8.2 0278224104) ALBUMIN (test code = 4.7 g/dL 3.5-5 8893591727) ALK PHOS (test code = 78 U/L 34-122 4661513225) ALTv (test code = 38 U/L 5-35 H 1742-6) AST(SGOT) (test code = 89 U/L 13-40 H 1104568037) eGFR (test code = mL/min/1.73m2 2896998123) CHRISTY (test code = CHRISTY) Association of Glomerular Filtration Rate (GFR) and Staging of Kidney Disease* + --+ --+ ------+| GFR (mL/min/1.73 m2) ?| With Kidney Damage ?| ?Without Kidney Damage+ --------+ --------+ +| ?>90 ?| ?Stage one ?| ? Normal ?+ ---+ ---+ -------+| ?60-89 ?| ?Stage two ?| ? Decreased GFR ? + --+ --+ ------+| ?30-59 ?| ?Stage three ?| ? Stage three ? + --+ --+ ------+| ?15-29 ?| ?Stage four ? | ? Stage four ?+ ---+ ---+ -------+| ?<15 (or dialysis) ? ?| ?Stage five ? | ? Stage five ?+ ---+ ---+ -------+ *Each stage assumes the associated GFR level has been in effect for at least three months. ?Stages 1 to 5, with or without kidney disease, indicate chronic kidney disease. Notes: Determination of stages one and two (with eGFR >59mL/min/1.73 m2) requires estimation of kidney damage for at least three months as defined by structural or functional abnormalities of the kidney, manifested by either:Pathological abnormalities or Markers of kidney damage (including abnormalities in the composition of the blood or urine or abnormalities in imaging tests). Lab Interpretation Abnormal (test code = 49055-6) [facility] WITH [id number] 02:07:27 Test Item Value Reference Range Interpretation Comments WBC (test code = See_Comment H [Automated 6690-2) message] The system which generated this result transmit scooter reference range : 4.30 - 11.10 10*3/?L. The reference range was not used to interpret this result as normal/abnormal . RBC (test code = See_Comment [Automated 789-8) message] The system which generated this result transmit scooter reference range : 3.93 - 5.25 10*6/?L. The reference range was not used to interpret this result as normal/abnormal . HGB (test code = 12.6 g/dL 11.6-15 718-7) HCT (test code = 36.5 % 35.7-45.2 4544-3) MCV (test code = 89.2 fL 80.6-95.5 787-2) MCH (test code = 30.8 pg 25.9-32.8 785-6) MCHC (test code = 34.5 g/dL 31.6-35.1 786-4) RDW-SD (test code = 43.6 fL 39-49.9 65047-8) RDW-CV (test code = 13.3 % 12-15.5 788-0) PLT (test code = See_Comment [Automated 777-3) message] The system which generated this result transmit scooter reference range : 166 - 358 10*3/ ?L. The reference range was not u sed to interpret th is result as normal/abnormal . MPV (test code = 9.5 fL 9.5-12.9 92955-0) NRBC/100 WBC (test See_Comment [Automat ed code = 6112451754) message] The system which generated this result transmit scooter reference range : 0.0 - 10.0 /100 WBCs. The reference range was not used to interpret this result as normal/abnormal . NRBC x10^3 (test code See_Comment [Auto mated = 2268648065) message] The system which generated this result transmit scooter reference range : 10*3/?L. The reference range was not used to interpret this result as normal/abnormal . GRAN MAT (NEUT) % 86.1 % (test code = 770-8) IMM GRAN % (test code 0.50 % = 8471340896) LYMPH % (test code = 6.6 % 736-9) MONO % (test code = 6.5 % 5905-5) EOS % (test code = 0.0 % 713-8) BASO % (test code = 0.3 % 706-2) GRAN MAT x10^3(ANC) 20.49 10*3/uL 1.88-7.09 H (test code = 7046335256) IMM GRAN x10^3 (test 0.13 10*3/uL 0-0.06 H code = 5282095966) LYMPH x10^3 (test code 1.57 10*3/uL 1.32-3.29 = 731-0) MONO x10^3 (test code 1.55 10*3/uL 0.33-0.92 H = 742-7) EOS x10^3 (test code = 0.03-0.39 L 711-2) BASO x10^3 (test code 0.07 10*3/uL 0.01-0.07 = 704-7) Lab Interpretation Abnormal (test code = 18504-6) [facility] WITH [id number] 23:38:01 Test Item Value Reference Range Interpretation Comments WBC (test code = See_Comment H [Automated 6690-2) message] The sy stem which generated this result transmitted reference range : 4.30 - 11.10 10*3/?L. The reference range was not used to interpret this result as normal/abnormal . RBC (test code = See_Comment [Automated 789-8) message] The sy stem which generated this result transmitted reference range : 3.93 - 5.25 10*6/?L. The reference range was not used to interpret this result as normal/abnormal . HGB (test code = 15.1 g/dL 11.6-15.0 H 718-7) HCT (test code = 44.4 % 35.7-45.2 4544-3) MCV (test code = 90.4 fL 80.6-95.5 787-2) MCH (test code = 30.8 pg 25.9-32.8 785-6) MCHC (test code = 34.0 g/dL 31.6-35.1 786-4) RDW-SD (test code = 39.6 fL 39.0-49.9 49658-1) RDW-CV (test code = 11.8 % 12.0-15.5 L 788-0) PLT (test code = See_Comment [Automated 777-3) message] The sy stem which generated this result transmitted reference range : 166 - 358 10*3/ ?L. The reference r saul was not used to interpret this result as normal/abnormal . MPV (test code = 9.6 fL 9.5-12.9 12711-7) IPF % (test code = 2.5 % 1.3-7.7 Platelet count 7025876001) measured by fluorescence method. NRBC/100 WBC (test See_Comment [Automat ed code = 3878138015) message] The system which generated this result transmitted reference range : 0.0 - 10.0 /100 WBCs. The refer ence range was not u sed to interpret th is result as normal/abnormal . NRBC x10^3 (test code <0.01 See_Comment [Auto mated = 5016786780) message] The s ystem which generated this result transmitted reference range : 10*3/?L. The reference range was not used to interpret this result as normal/abnormal . SEG % (test code = 83 % 33-76 H 09112-8) BAND % (test code = 3 % 0-1 H 98161-3) LYMPH % (test code = 11 % 14-54 L 87713-5) MONO % (test code = 3 % 0-4 81358-6) ANC (test code = 20.12 10*3/uL 1.88-7.09 H 753-4) PLT ESTIMATE (test Normal Normal code = 9317-9) Lab Interpretation Abnormal (test code = 78787-7) [facility] HospitalCOMP. METABOLIC PANEL ([id number])2021-12-05 23:23:58 Test Item Value Reference Range Interpretation Comments NA (test code = 140 mmol/L 135-145 2778423636) K (test code = 4.0 mmol/L 3.5-5.0 9345158099) CL (test code = 106 mmol/L 98-108 0504786399) CO2 TOTAL (test code = 21 mmol/L 23-31 L 9365543022) AGAP (test code = 2-16 3698267154) BUN (test code = 12 mg/dL 7-23 8426956061) GLUCOSE (test code = 107 mg/dL 70-110 6812035582) CREATININE (test code = 0.94 mg/dL 0.50-1.04 7497540075) TOTAL BILI (test code = 0.5 mg/dL 0.1-1.9 2188013148) CALCIUM (test code = 9.9 mg/dL 8.6-10.6 1707990516) T PROTEIN (test code = 7.4 g/dL 6.3-8.2 8048744521) ALBUMIN (test code = 4.7 g/dL 3.5-5.0 5445154692) ALK PHOS (test code = 91 U/L 34-122 8870894301) ALTv (test code = 24 U/L 5-35 2-6) AST(SGOT) (test code = 32 U/L 13-40 5373946666) eGFR (test code = mL/min/1.73m2 8250944877) CHRISTY (test code = CHRISTY) Association of Glomerular Filtration Rate (GFR) and Staging of Kidney Disease* + --+ --+ ------+| GFR (mL/min/1.73 m2) ?| With Kidney Damage ?| ?Without Kidney Damage+ --------+ --------+ +| ?>90 ?| ?Stage one ?| ? Normal ?+ ---+ ---+ -------+| ?60-89 ?| ?Stage two ?| ? Decreased GFR ? + --+ --+ ------+| ?30-59 ?| ?Stage three ?| ? Stage three ? + --+ --+ ------+| ?15-29 ?| ?Stage four ? | ? Stage four ?+ ---+ ---+ -------+| ?<15 (or dialysis) ? ?| ?Stage five ? | ? Stage five ?+ ---+ ---+ -------+ *Each stage assumes the associated GFR level has been in effect for at least three months. ?Stages 1 to 5, with or without kidney disease, indicate chronic kidney disease. Notes: Determination of stages one and two (with eGFR >59mL/min/1.73 m2) requires estimation of kidney damage for at least three months as defined by structural or functional abnormalities of the kidney, manifested by either:Pathological abnormalities or Markers of kidney damage (including abnormalities in the composition of the blood or urine or abnormalities in imaging tests). Lab Interpretation Abnormal (test code = 85370-0) [facility] HospitalPOCT [id number] 22:54:00 Test Item Value Reference Range Interpretation Comments POCT PREG (test code = 1605) negative On board controls acceptable with present C Line (test code = 3574) POCT PREG LOT # (test code = 3575) [id number] POCT PREG TEST DATE (test code = 3576) Lab Interpretation (test code = Normal 52527-0) [facility]"
[2022-05-01 17:16] LABS: Absolute Lymphocytes (CBC) 2.5 K/uL (0.7-4.9); Hematocrit 38.4 % (36.0-45.0); Lymphocytes % 21.2 % (15.3-44.8); MCV 89.8 fL (80-100); MPV 7.4 fL (7.6-11.3); RBC Red Blood Cell Count 4.27 M/uL (3.86-4.86)
[2022-05-01 17:33] LABS: BUN Blood Urea Nitrogen 9 mg/dL (7-18); Bicarbonate 19 mmol/L (21-32); Glomerular Filtration Rate 108 ml/min (=/>90); Glucose Level 87 mg/dL (74-106); Potassium 3.8 mmol/L (3.5-5.1); Sodium Level 141 mmol/L (136-145)
--- NOTE | 2022-05-01 19:18 | ER ---
Nurse's Notes [facility] Name: Elizabeth Rodriguez Age: 27 yrs Sex: Female : 1995 Arrival Date: 05/01/2022 Time: 16:32 Bed 19 Private MD: Diagnosis: Patient's other noncompliance with medication regimen Presentation: 05/01 16:48 Chief complaint: Patient states: "I just need to talk to somebody." States she "hasn't ll1 slept, walking a lot, and feels suicidal." Refuses to answer further questions regarding history or SI plan/history. Dropped off by PD officer at patients request. Coronavirus screen: At this time, the client does not indicate any symptoms associated with coronavirus-19. Ebola Screen: Patient denies travel to an Ebola-affected area in the 21 days before illness onset. Initial Sepsis Screen: Does the patient meet any 2 criteria? HR > 90 bpm. No. Patient's initial sepsis screen is negative. Does the patient have a suspected source of infection? No. Patient's initial sepsis screen is negative. Risk Assessment: Do you want to hurt yourself or someone else? Patient reports desire/thoughts of hurting themselves or someone else. Provider notified. Onset of symptoms is unknown. 16:48 Method Of Arrival: Law Enforcement ll1 16:48 Acuity: RACHEL 2 ll1 Triage Assessment: 16:50 General: Appears distressed, uncomfortable, unkempt, Behavior is appropriate for age, ll1 agitated, anxious, crying, restless. Pain: Denies pain. Neuro: Reports not sleeping, suicidal.. Respiratory: Airway is patent Trachea midline Respiratory effort is labored, Respiratory pattern is tachypnea. 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 - Social history:: Smoking status: unknown. Screenin:15 Abuse screen: Denies threats or abuse. Nutritional screening: No deficits noted. ll1 Tuberculosis screening: No symptoms or risk factors identified. Fall Risk Total [place] Fall Scale indicates No Risk (0-24 pts). Assessment: 17:14 Reassessment: No changes from previously documented assessment. Patient and/or family ll1 updated on plan of care and expected duration. Pain level reassessed. 17:57 Reassessment: No changes from previously documented assessment. Patient and/or family ll1 updated on plan of care and expected duration. Pain level reassessed. Vital Signs: 16:48 BP 134 / 81; Pulse 117; Resp 26; Pulse Ox 100% ; Pain 0/10; ll1 ED Course: 16:32 Patient arrived in ED. ll1 16:32 Mindy Daly, RN is Primary Nurse. ll1 16:33 Ac Rossi is PHCP. jl9 16:33 Chung Bajwa MD is Attending Physician. jl9 16:50 Triage completed. ll1 16:52 Arm band placed on Patient placed in an exam room, on a stretcher. ll1 17:07 Initial lab(s) drawn, by me, sent to lab. ll1 17:15 Patient has correct armband on for positive identification. Bed in low position. Call ll1 light in reach. Side rails up X 1. Cardiac monitoring not applicable on this patient. 19:23 No provider procedures requiring assistance completed. Patient did not have IV access ll3 during this emergency room visit. Administered Medications: No medications were administered Medication: 17:15 VIS not applicable for this client. ll1 Outcome: 19:17 Discharge ordered by . jl9 19:23 Discharged to home ambulatory. ll3 19:23 Condition: stable 19:23 Discharge instructions given to patient, Instructed on discharge instructions, follow up and referral plans. medication usage, Demonstrated understanding of instructions, follow-up care, medications, Prescriptions given X 1. 19:24 Patient left the ED. ll3 Addendum: 05/05/2022 15:24 Addendum: Other [place] [facility] that pt was seen j l7 at this hospital, pt is a missing person. Informed [place] Marco pt was seen here and is no longer a pt. Signatures: Bianca Crooks RN RN jl7 Mindy Daly RN RN ll1 Jose Ruiz RN RN ll3 Ac Rossi jl9
--- NOTE | 2022-05-01 19:18 | EDPHYS ---
Physician Documentation [facility] Name: Elizabeth Rodriguez Age: 27 yrs Sex: Female : 1995 Arrival Date: 05/01/2022 Time: 16:32 Bed 19 Private MD: ED Physician Chung Bajwa HPI: 05/01 17:22 This 27 yrs old Female presents to ER via Law Enforcement with complaints of jl9 needing a medication refill. Patient reports that she has not slept alot recently. Patient denies any current SI or HI. . 17:22 The patient presents to the emergency department requesting refill(s) for: Hydroxyzine. 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 - Social history:: Smoking status: unknown. ROS: 17:23 Constitutional: Negative for fever, chills, and weight loss, Eyes: Negative for injury, jl9 pain, redness, and discharge, ENT: Negative for injury, pain, and discharge, Neck: Negative for injury, pain, and swelling, Cardiovascular: Negative for chest pain, palpitations, and edema, Respiratory: Negative for shortness of breath, cough, wheezing, and pleuritic chest pain, Abdomen/GI: Negative for abdominal pain, nausea, vomiting, diarrhea, and constipation, Back: Negative for injury and pain, : Negative for injury, bleeding, discharge, and swelling, MS/Extremity: Negative for injury and deformity, Skin: Negative for injury, rash, and discoloration, Neuro: Negative for headache, weakness, numbness, tingling, and seizure. 17:23 Allergy/Immunology: Negative for hives, rash, and allergies, Endocrine: Negative for neck swelling, polydipsia, polyuria, polyphagia, and marked weight changes, Hematologic/Lymphatic: Negative for swollen nodes, abnormal bleeding, and unusual bruising. 17:23 Psych: Negative for auditory hallucinations, visual hallucinations, homicidal ideation, suicide gesture, suicidal ideation. Exam: 19:16 Constitutional: This is a well developed, well nourished patient who is awake, alert, jl9 and in no acute distress. Head/Face: Normocephalic, atraumatic. Eyes: Pupils equal round and reactive to light, extra-ocular motions intact. Lids and lashes normal. Conjunctiva and sclera are non-icteric and not injected. Cornea within normal limits. Periorbital areas with no swelling, redness, or edema. ENT: Mucous membranes moist. Neck: Trachea midline, no thyromegaly or masses palpated, and no cervical lymphadenopathy. Supple, full range of motion without nuchal rigidity, or vertebral point tenderness. No Meningismus. Chest/axilla: Normal chest wall appearance and motion. Nontender with no deformity. No lesions are appreciated. Cardiovascular: Regular rate and rhythm with a normal S1 and S2. No gallops, murmurs, or rubs. Normal PMI, no JVD. No pulse deficits. Respiratory: Lungs have equal breath sounds bilaterally, clear to auscultation and percussion. No rales, rhonchi or wheezes noted. No increased work of breathing, no retractions or nasal flaring. Abdomen/GI: Soft, non-tender, with normal bowel sounds. No distension or tympany. No guarding or rebound. No evidence of tenderness throughout. Back: No spinal tenderness. No costovertebral tenderness. Full range of motion. Skin: Warm, dry with normal turgor. Normal color with no rashes, no lesions, and no evidence of cellulitis. MS/ Extremity: Pulses equal, no cyanosis. Neurovascular intact. Full, normal range of motion. Neuro: Awake and alert, GCS 15, oriented to person, place, time, and situation. Cranial nerves II-XII grossly intact. Motor strength 5/5 in all extremities. Sensory grossly intact. Cerebellar exam normal. Normal gait. Psych: Awake, alert, with orientation to person, place and time. Behavior, mood, and affect are within normal limits. Vital Signs: 16:48 BP 134 / 81; Pulse 117; Resp 26; Pulse Ox 100% ; Pain 0/10; ll1 MDM: 16:33 Patient medically screened. 9 19:16 Data reviewed: vital signs, nurses notes. Counseling: I had a detailed discussion with jl9 the patient and/or guardian regarding: the historical points, exam findings, and any diagnostic results supporting the discharge/admit diagnosis, lab results, the need for outpatient follow up, to return to the emergency department if symptoms worsen or persist or if there are any questions or concerns that arise at home. 19:18 ED course: Patient denies any SI or HI. Patient AAOxPPTE and agrees to follow up with jl9 her PCP. . 05/01 16:54 Order name: CBC with Diff; Complete Time: 17:50 9 05/01 16:54 Order name: BMP; Complete Time: 17:50 jl9 05/01 16:54 Order name: ETOH Level; Complete Time: 17:50 jl9 05/01 16:54 Order name: Acetaminophen; Complete Time: 17:50 jl9 05/01 18:31 Order name: Hepatic Function jl9 05/01 18:31 Order name: Salicylate 9 05/01 18:31 Order name: Suicide Screening ([place]); Complete Time: 18:41 jl9 Administered Medications: No medications were administered Disposition Summary: 05/01/22 19:17 Discharge Ordered Location: Home jl9 Condition: Stable jl9 Diagnosis - Patient's other noncompliance with medication regimen jl9 Followup: jl9 - With: Private Physician - When: 1 - 2 days - Reason: Recheck today's complaints, Continuance of care, Re-evaluation by your physician Discharge Instructions: - Discharge Summary Sheet jl9 Forms: - Medication Reconciliation Form jl9 - Thank You Letter jl9 - Antibiotic Education jl9 - Prescription Opioid Use jl9 Prescriptions: - Hydroxyzine HCl 50 mg Oral Tablet - take 1 tablet by ORAL route every 8 hours As needed; 20 tablet; Refills: 0, jl9 Product Selection Permitted Addendum: 05/04/2022 07:03 Co-signature as Attending Physician, Chung Bajwa MD. r n Signatures: Dispatcher [employer] EDMS Chung Bajwa MD MD rn Lewis, Lynsay, RN RN ll1 Linares, John jl9 Corrections: (The following items were deleted from the chart) 05/01 19:16 17:22 This 27 yrs old Female presents to ER via Law Enforcement with jl9 complaints of feeling suicidal. Patient reports that she has not slept alot recently. Patient denies having a plan. . jl9 19:16 17:23 Psych: Positive for anxiety, insomnia, suicidal ideation, jl9 jl9 19:22 16:54 Urine Dipstick-Ancillary ordered. jl9 ll3 19:22 16:54 Urine Test ordered. jl9 ll3 18:31 EKG - Nurse/Tech ordered. jl9 ll3
[2022-05-01 19:34] LABS: Albumin 4.5 g/dL (3.4-5.0); Bilirubin Direct 0.2 mg/dL (0-0.2); Bilirubin Total 0.5 mg/dL (0.2-1.0); Protein, Total 7.8 g/dL (6.4-8.2)
[2022-05-01 21:01] VITALS: BP 134/81; O2SAT 100
== END 2022-05-01 19:24 | disposition home or self-care (01) ==
LOC: ER 16:25
DX: Z91.14 Patient's other noncompliance with medication regimen (principal)
CPT/HCPCS: 36415; 80048; 80076; 80320; 80329; 85025; 99283